=== PATIENT | female | born 1960 | race Caucasian/White ===

== ENCOUNTER 2019-03-29 22:00 | Emergency (ER) | payer SELFPAY ==
[~2019-03-29] VITALS: Ht 162.6 cm; Wt 94.1 kg
[2019-03-29 22:06] VITALS: Ht 162.6 cm; Wt 94.1 kg
--- NOTE | 2019-03-30 00:03 | ERD ---
ER Documentation Chief Complaint Chief Complaint left foot swelling & pain started today,denies fall,hx thrombosis,on xarelt HPI This is a 58-year-old female with a prior history of a left-sided DVT, who presents for check of her DVT she is currently visiting from [place]. She is currently on Xarelto, she states that she has received heparin injections in the past, and will know if he needed them. She denies any chest pain or shortness of breath, she has not had a fever, no trauma. ROS All systems reviewed and are negative except as per history of present illness. Allergies Allergies: Coded Allergies: No Known Allergy (Unverified , 03/29/19) PMhx/Soc Hx Miscellaneous Medical Probl: Yes (L LEG DVT) Hx Alcohol Use: No Hx Substance Use: No Hx Tobacco Use: No Smoking Status: Never smoker Physical Exam Vitals Vital Signs Date Temp Pulse Resp B/P (MAP) Pulse Ox O2 O2 Flow FiO2 Time Delivery Rate 03/29/19 98.3 103 19 142/90 100 22:06 (107) Physical Exam Const: No acute distress Head: Atraumatic Eyes: Normal Conjunctiva ENT: Normal External Ears, Nose and Mouth. Neck: Full range of motion. No meningismus. Resp: Clear to auscultation bilaterally Cardio: Regular rate and rhythm, no murmurs Abd: Soft, non tender, non distended. Normal bowel sounds Skin: No petechiae or rashes Back: No midline or flank tenderness Ext: No cyanosis, there is swelling noted of the left lower extremity, with calf tenderness, pulses are intact distally, compartments are soft and easily compressible. Neur: Awake and alert Psych: Normal Mood and Affect Result Diagram: 03/29/19 2323 Results 24 hrs Laboratory Tests Test 03/29/19 23:23 White Blood Count 9.7 10^3/ul Red Blood Count 4.54 10^6/ul Hemoglobin 13.3 g/dl Hematocrit 41.1 % Mean Corpuscular Volume 90.5 fl Mean Corpuscular Hemoglobin 29.3 pg Mean Corpuscular Hemoglobin Concent 32.4 g/dl Red Cell Distribution Width 14.0 % Platelet Count 321 10^3/UL Mean Platelet Volume 9.3 fl Immature Granulocytes % 0.300 % Neutrophils % 53.7 % Lymphocytes % 33.6 % Monocytes % 8.2 % Eosinophils % 3.4 % Basophils % 0.8 % Nucleated Red Blood Cells % 0.0 /100WBC Immature Granulocytes # 0.030 10^3/ul Neutrophils # 5.2 10^3/ul Lymphocytes # 3.3 10^3/ul Monocytes # 0.8 10^3/ul Eosinophils # 0.3 10^3/ul Basophils # 0.1 10^3/ul Nucleated Red Blood Cells # 0.0 10^3/ul Prothrombin Time 18.7 Sec Prothrombin Time Ratio 1.5 INR International Normalized Ratio 1.55 Activated Partial Thromboplast Time 40.6 Sec Procedures/MDM Pleasant 58-year-old female presents for evaluation of left lower extremity swelling. She does have a known history of a DVT, [place]. This was confirmed on ultrasound today, her x-ray showed no acute findings, I recommended that she continue her Xarelto, she is planning on returning on Saturday, and has sufficient medication until then, strict return precautions were given for chest pain or shortness of breath, at discharge she was in no distress. Departure Diagnosis: Primary Impression: Deep venous embolism and thrombosis Condition: Stable Patient Instructions: Dvt Additional Instructions: Call your primary care doctor TOMORROW for an appointment during the next 2-3 days.See the doctor sooner or return here if your condition worsens before your appointment time. FLORA JONES MD Mar 30, 2019 00:03
[2019-03-30 00:05] VITALS: BP 157/88; PULSE 79; RESP 16
== END 2019-03-30 00:27 | disposition home or self-care (01) ==
LOC: E/R 22:00
DX: I82.402 Acute embolism and thrombosis of unspecified deep veins of left lower extremity (principal)
CPT/HCPCS: 80053; 85025; 85610; 85730; 93971